=== PATIENT | female | born 1960 | race Caucasian/White ===

== ENCOUNTER → 2024-05-24 08:16 | Outpatient (BNVA) | payer OTHER, SELFPAY | PROVIDERS: Visit Provider Podiatrist Foot & Ankle Surgery | DX: M79.671 Pain in right foot (principal); R03.0 Elevated blood-pressure reading, without diagnosis of hypertension; Q82.8 Other specified congenital malformations of skin; M21.621 Bunionette of right foot; M77.41 Metatarsalgia, right foot | CPT/HCPCS: 73630 ==